=== PATIENT | male | born 1980 | race Caucasian/White ===

== ENCOUNTER 2018-09-30 09:15 | Emergency (ER) | payer MEDICAID ==
[2018-09-30] MEDS: FLUORESCEIN STRIP RIGHT EYE (10:15)
[2018-09-30] MEDS: TETRACAINE 0.5% 4 ML OPH RIGHT EYE (10:15)
[2018-09-30] MEDS: DIPHTH/TET/ACEL PERTUSS (ADULT) 0.5 ML VIAL IM* (11:14)
== END 2018-09-30 14:20 | disposition home or self-care (01) ==
LOC: FTE 09:15
DX: S05.01XA Injury of conjunctiva and corneal abrasion without foreign body, right eye, initial encounter (principal); X58.XXXA Exposure to other specified factors, initial encounter; Y92.89 Other specified places as the place of occurrence of the external cause; Z23 Encounter for immunization
CPT/HCPCS: 70480; 90471; 90715; 99284-25